=== PATIENT | male | born 1970 | race Caucasian/White ===

== ENCOUNTER 2020-12-06 15:04 | Outpatient (CLI) | payer BC, SELFPAY ==
--- NOTE | ~2020-12-06 | CT_ITS ---
EXAMINATION: CTA chest DATE: 12/06/2020 15:48 INDICATION: Ascending aortic aneurysm. TECHNIQUE: Computed tomographic angiography (CTA) of the chest was performed with 100 mL Omnipaque-35 0 intravenous contrast. Automated exposure control and iterative reconstruction technique were employ ed. The dose-length product was 431.98 mGy-cm. Maximum intensity projection 3D-reconstructions of the aorta and other arteries were constructed by the technologist on a separate workstation. COMPARISON: None. FINDINGS: The lungs demonstrate minimal atelectasis. No pleural effusion. Cardiomegaly is noted. No p ericardial effusion. There are changes of graft repair of ascending aorta. The aorta measures 2.7 cm at the aortic valve, 4.4 cm at the sinuses of Valsalva, 3.3 cm in the mid ascending aorta, 2.8 cm at the aortic isthmus, and 2.8 cm in the mid descending aorta. The spine is unremarkable. IMPRESSION: 1. Graft repair of ascending aorta, stable from 10/29/2015. Reviewed, dictated and finalized at location A.
== END 2020-12-06 15:05 | disposition home or self-care (01) ==
PROVIDERS: PCP Pediatrics; Visit Provider Internal Medicine Cardiovascular Disease
DX: I71.2 Thoracic aortic aneurysm, without rupture (principal); I48.19 Other persistent atrial fibrillation; Z95.1 Presence of aortocoronary bypass graft
CPT/HCPCS: 71275; Q9967